=== PATIENT | male | born 1965 | race Caucasian/White ===

== ENCOUNTER 2017-04-26 09:42 | Day surgery (SDC) | payer BC ==
[~2017-04-26 09:42] MED LIST: Buffered Lidocaine 0.9% SYRIN* 5 ML/SYR SYRINGE INTRADERM ONE; NS 0.9% 1000 ML* 1,000 ML IV SCH
[2017-04-26] MEDS ORDERED: Buffered Lidocaine 0.9% SYRIN* 5 ML/SYR SYRINGE ONE (09:46)
[2017-04-26] MEDS ORDERED: Midazolam* 1 MG/ML 5 ML VIAL (5 MG) ONE (10:59)
[2017-04-26] MEDS ORDERED: fentaNYL* 50 MCG/ML 2 ML VIAL (100 MCG VIAL) ONE ×3 (10:59→16:17)
[2017-04-26] MEDS ORDERED: Ciprofloxacin 0.3% OPTH.SOL* 2.5 ML BTL ONE (11:25)
[2017-04-26] MEDS ORDERED: Gelfoam 12-7 ADSORBABL SPONGE* 1 EA SPONGE ONE (11:25)
[2017-04-26] MEDS ORDERED: Lidocaine 1% MPF wEPI 200,000* 30 ML SDV ONE (11:25)
[2017-04-26] MEDS ORDERED: EPINEPHrine AMP 1 MG/ML ONE (11:40)
[2017-04-26] MEDS ORDERED: Propofol* 10 MG/ML 20 ML BTL IV PUSH ONE (11:51)
[2017-04-26] MEDS ORDERED: Dexamethasone IV* 4 MG/ML 1 ML (4 MG) ONE (11:51)
[2017-04-26] MEDS ORDERED: Lidocaine 2% PF * 5 ML VIAL ONE (11:51)
[2017-04-26] MEDS ORDERED: Ondansetron INJ* 2 MG/ML VIAL ONE (11:51)
[2017-04-26] MEDS ORDERED: Famotidine IV* 10 MG/ML 2 ML (20 mg) ONE (11:51)
[2017-04-26] MEDS ORDERED: Cisatracurium* 2 MG/ML MDV 5 ML ONE (11:58)
[2017-04-26] MEDS ORDERED: DiMENhydriNATE IV* 50 MG/ML VIAL IV PUSH PRN (12:45)
[2017-04-26] MEDS ORDERED: Ondansetron INJ* 2 MG/ML VIAL IV PRN (12:45)
[2017-04-26] MEDS ORDERED: PROCHLORPERAZINE INJ 5 MG/ML 2 ML VIAL IV PRN (12:45)
[2017-04-26] MEDS ORDERED: HYDROcodone/ACETAMIN 5-325 MG* 1 TAB PO PRN (12:45)
[2017-04-26] MEDS ORDERED: Acetaminophen TAB* 325 MG PO PRN (12:45)
[2017-04-26] MEDS ORDERED: Bacitracin OINTMENT* 1 TUBE ONE (15:47)
[2017-04-26] MEDS ORDERED: HYDROmorphone* 1 MG/ML 1 ML SYR ONE (16:18)
[2017-04-26] MEDS ORDERED: HYDROcodone/ACET. 7.5/325 LIQ* 15 ML UDC ONE (16:18)
[2017-04-26] MEDS: HYDROmorphone* 1 MG/ML 1 ML SYR IV PRN ×5 (16:19→17:05)
[2017-04-26] MEDS: fentaNYL* 50 MCG/ML 2 ML VIAL (100 MCG VIAL) IV PRN ×3 (16:21→17:05)
[2017-04-26] MEDS ORDERED: DiMENhydriNATE IV* 50 MG/ML VIAL ONE (17:39)
[2017-04-26 17:53] VITALS: BP 126/62
--- NOTE | 2017-04-27 09:42 | OP ---
DATE OF OPERATION: 04/26/17 [facility] DATE OF : 67 SURGEON: Alirio Menchaca MD [employer]: None. ANESTHESIOLOGIST: Dr. Lemons ANESTHESIA: General. PRE-OP DIAGNOSIS: Cholesteatoma, right ear. POST-OP DIAGNOSIS: Cholesteatoma, right ear. OPERATIVE PROCEDURE: Right mastoidectomy. ESTIMATED BLOOD LOSS: Negligible. 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 DESCRIPTION OF PROCEDURE: On 04/26/17, the patient was brought to the operating room, general anesthesia was induced and an oral endotracheal tube was placed. A NIM facial nerve monitor was then applied, tested, and found to be in good working order. The patient's right ear was then infiltrated in the postauricular sulcus with approximately 3 cc of 1% lidocaine with 1:100,000 epinephrine. The right ear was then prepped with Betadine and draped in sterile fashion. A time-out was performed. The ear canal was irrigated copiously with saline. A four-quadrant canal injection with 1% lidocaine with epinephrine was made. An incision was made from approximately 6 o'clock to 12 o'clock around the posterior canal wall, approximately 8 mm lateral to the anulus. A piece of Gelfoam was then placed into the ear canal. Attention was then turned post auricularly. A 15-blade was used to incise the postauricular skin. Deeper dissection was then taken with a Bovie cautery down to the postauricular musculature down to the mastoid periosteum and temporalis fascia. A 2 x 2 cm large fascia graft was then harvested, placed in a press to flatten and then subsequently dried. The mastoid periosteum was then incised along the temporal line as the limb dropped inferiorly towards the mastoid tip. Mastoid periosteum was elevated with a periosteal elevator and this elevation was extended down the posterior canal wall in continuity with posterior canal skin until the previously made endaural incision was encountered. A 0.25% inch Encinal drain was then placed through the ear canal, bought out through the posterior incision and used to retract the ear forward. At this point, the tympanic membrane was inspected, there was some crusted debris at the entrance to the pars flaccid retraction pocket, this was cleaned. There was clear cholesteatoma deep within the pocket. The tympano-meatal flap was then elevated superiorly. It was left in place inferiorly where there was a myringostapediopexy present which is fairly adherent to the incudostapedial joint. Attention was then towards the mastoid cortex. A mastoidectomy was performed with a combination of cutting and marline burrs. The tegmen and sigmoid sinus were used as landmarks to guide dissection as was the bony canal. The mastoid antrum was entered and the dissection was taken anteriorly into the root of the zygoma. The posterior edge of the cholesteatoma sac was then encountered. The bone zygoma was drilled anteriorly removing the cholesteatoma. The cholesteatoma was then dissected off the restrepo of the mastoid antrum and the tegmen and delivered through into the middle ear space. Most of the cholesteatoma was able to be removed in a single large piece. There were some places where cholesteatoma matrix was stuck to the restrepo of the mastoid antrum, this was removed piecemeal with a fine suction and a joint knife. There was also some cholesteatoma matrix on the incudo-malleal joint, although there was preservation of the joint and the cholesteatoma matrix in this area was painstakingly dissected free. At this point, with the cholesteatoma out in the retraction pocket removed, there was need to reconstruct not just the tympanic membrane but also a stapedial defect. Some conchal cartilage was harvested and the temporalis fascia graft was trimmed appropriately. The temporalis fascia graft was laid underneath the edges of the tympanic membranes. Some of the tympanic membrane did need to be freed off the manubrium of the malleus to allow for good graft placement. The cartilage that was harvested was trimmed and placed into the stapedial defect to provide some support for the ear canal and temporalis fascia graft. The antrum and mastoid cavity were then packed with Cipro-soaked Gelfoam, Cipro-soaked Gelfoam was also placed lateral to the tympanomeatal flap. The mastoid periosteum was closed with 4-0 Vicryl, postauricular skin was also closed with 4-0 Vicryl. The ear canal was then packed in its entirety with Cipro-soaked Gelfoam. A mastoid dressing was applied. The facial nerve monitor was then removed from the patient. The patient was returned to the care of the anesthesiologist, aroused without difficulty, and delivered to PACU in stable condition where fascial nerve function was confirmed. [id number]/[facility] #: [id number] [facility]
== END 2017-04-26 17:53 | disposition home or self-care (01) ==
LOC: OR 09:42
PROVIDERS: ATTEND Otolaryngology
DX: H71.01 Cholesteatoma of attic, right ear (principal); H71.21 Cholesteatoma of mastoid, right ear; I10 Essential (primary) hypertension; E29.1 Testicular hypofunction; Z79.82 Long term (current) use of aspirin; Z87.891 Personal history of nicotine dependence
CPT/HCPCS: 88304; A9270-GY; J0171; J1100; J1170; J1240; J2001; J2250; J2405; J2704; J3010